=== PATIENT | female | born 1990 | race Caucasian/White ===

== ENCOUNTER 2016-12-09 17:40 | Emergency (ER) | payer OTHER ==
[2016-12-09 18:36] LABS: BILIRUBIN NEGATIVE (NEGATIVE); BLOOD NEGATIVE Ery/uL (NEGATIVE); CLARITY CLEAR (CLEAR); COLOR YELLOW (YELLOW); GLUCOSE (U) NORMAL (NORMAL); KETONE (U) NEGATIVE (NEGATIVE); LEUKOCYTES NEGATIVE Leu/uL (NEGATIVE); NITRITE NEGATIVE (NEGATIVE); PROTEIN NEGATIVE (NEGATIVE); SPECIFIC GRAVITY 1.015 (1.001-1.030)
[2016-12-09 19:33] LABS: BASOPHIL 0.2 % (0-2); EOSINOPHIL 4.3 % (0-5); HCT 38.2 % (37.0-47.0); LYMPHOCYTE 28.1 % (15-48); MCH 31.5 pg (25.0-31.0); MCV 92.5 fL (78.0-100.0); MONOCYTE 9.6 % (0-12); MPV 9.1 fL (6.0-9.5); NEUTROPHIL 57.8 % (41-80); PLT 275 K/uL (150-400); RBC 4.13 M/uL (4.20-5.40); RDW 13.4 % (11.5-14.0); WBC 8.2 K/uL (4.0-10.5)
[2016-12-09 19:51] LABS: INR 0.99 (0.9-1.2); PROTHROMBIN TIME 12.7 SECONDS (11.7-14.0)
[2016-12-09 19:58] LABS: CREATININE 0.6 mg/dL (0.5-1.0); POTASSIUM 4.1 mmol/L (3.5-5.1)
== END 2016-12-09 19:55 | disposition home or self-care (01) ==
LOC: FER 17:40
PROVIDERS: Emergency Medicine
DX: O20.9 Hemorrhage in early pregnancy, unspecified (principal); F17.210 Nicotine dependence, cigarettes, uncomplicated; Z88.0 Allergy status to penicillin; Z3A.01 Less than 8 weeks gestation of pregnancy
CPT/HCPCS: 36415; 76817; 80048; 81003; 84702; 85025; 85610; 85730; 87210

== ENCOUNTER 2016-12-29 09:58 | Emergency (ER) | payer OTHER ==
[2016-12-29 11:33] LABS: BILIRUBIN NEGATIVE (NEGATIVE); BLOOD 1+ Ery/uL (NEGATIVE); CLARITY CLOUDY (CLEAR); COLOR YELLOW (YELLOW); GLUCOSE (U) NORMAL (NORMAL); KETONE (U) NEGATIVE (NEGATIVE); LEUKOCYTES NEGATIVE Leu/uL (NEGATIVE); NITRITE POSITIVE (NEGATIVE); PROTEIN TRACE (LOW) mg/dL (NEGATIVE); SPECIFIC GRAVITY 1.025 (1.001-1.030)
[2016-12-29 11:51] LABS: BACTERIA 4+
[2016-12-29 12:01] LABS: BASOPHIL 0.4 % (0-2); EOSINOPHIL 2.9 % (0-5); HCT 38.7 % (37.0-47.0); HGB 13.5 g/dl (12.5-16.0); LYMPHOCYTE 33.6 % (15-48); MCH 32.2 pg (25.0-31.0); MCHC 34.9 g/dL (32.0-36.0); MCV 92.4 fL (78.0-100.0); MONOCYTE 6.3 % (0-12); MPV 9.6 fL (6.0-9.5); NEUTROPHIL 56.8 % (41-80); PLT 271 K/uL (150-400); RBC 4.19 M/uL (4.20-5.40); RDW 13.1 % (11.5-14.0); WBC 8.2 K/uL (4.0-10.5)
[2016-12-29 12:17] LABS: ALBUMIN 4.7 g/dL (3.5-5.0); BILIRUBIN - TOTAL 0.5 mg/dL (0.1-1.0); CREATININE 0.6 mg/dL (0.5-1.0); GLOBULIN (CALCULATION) 2.9 g/dL (2.2-4.2); TOTAL PROTEIN 7.6 g/dL (6.4-8.3)
== END 2016-12-29 15:03 | disposition left against medical advice (07) ==
LOC: FER 09:58
PROVIDERS: Nurse Practitioner Family
DX: O23.41 Unspecified infection of urinary tract in pregnancy, first trimester (principal); Z88.0 Allergy status to penicillin; Z88.1 Allergy status to other antibiotic agents; Z3A.12 12 weeks gestation of pregnancy
CPT/HCPCS: 36415; 76817; 80053; 81001; 82150; 83690; 84702; 85025; 87210